=== PATIENT | female | born 1935 | race Caucasian/White ===

== ENCOUNTER 2019-08-31 16:36 | Inpatient (IN) | payer MEDICARE, BC ==
[~2019-08-31] VITALS: Ht 167.6 cm; Wt 74.9 kg
[2019-08-31] MEDS ORDERED: IV NORMAL SALINE 1,000ML 1,000 ML IV ONE (17:15)
--- NOTE | 2019-08-31 17:41 | PHYS DOC ---
Past History Past Medical History: Dementia, Depression, GERD, Hypertension (LEEROY GILES DO) Past Surgical History: Appendectomy, Tonsillectomy, Other Additional Past Surgical Histo: BILATERAL KNEES,HEMORRHOIDS (LEEROY GILES DO) Alcohol Use: Rarely Drug Use: None (LEEROY GILES DO) Adult General Chief Complaint Chief Complaint: MECHANICAL FALL HPI HPI 83-year-old female with dementia presents with multiple falls. She lives in an independent living facility. She has fallen at least twice in the last 3 days. She complains of left lateral rib pain. Her family member who accompanies her states that she was in quite a bit of pain earlier today. Patient does not remember significant pain. She states that the pain is only there when she takes deep breaths. She denies shortness breath or chest pain. She had an acoustic neuroma removed in 1988. She is always had some balance issues, but is been much worse lately. Family is concerned. Patient has not reported fever or chills recently. (LEEROY GILES DO) Review of Systems Review of Systems Constitutional: Multiple falls. Denies fever or chills [] Eyes: Denies change in visual acuity, redness, or eye pain [] HENT: Denies nasal congestion or sore throat [] Respiratory: Denies cough or shortness of breath [] Cardiovascular: No additional information not addressed in HPI [] GI: Denies abdominal pain, nausea, vomiting, bloody stools or diarrhea [] : Denies dysuria or hematuria [] Musculoskeletal: Left rib pain[] Integument: Denies rash or skin lesions [] Neurologic: Denies headache, focal weakness or sensory changes [] Endocrine: Denies polyuria or polydipsia [] All other systems were reviewed and found to be within normal limits, except as documented in this note. (LEEROY GILES DO) Current Medications Current Medications Current Medications Medications (Trade) Dose Ordered Sig/[place] Start Time Stop Time Status Last Admin Dose Admin Sodium Chloride 1,000 ml @ 1,000 mls/hr 1X ONCE 08/31/19 17:15 08/31/19 18:14 (LEEROY GILES DO) Allergies Allergies Allergies Coded Allergies Type Severity Reaction Last Updated Verified Penicillins Allergy Unknown 08/31/19 Yes Sulfa (Sulfonamide Antibiotics) Allergy Unknown 08/31/19 Yes (LEEROY GILES DO) Physical Exam Physical Exam Constitutional: Well developed, well nourished, no acute distress, non-toxic appearance. [] HENT: Normocephalic, atraumatic, bilateral external ears normal, oropharynx moist, no oral exudates, nose normal. [] Eyes: PERRLA, EOMI, conjunctiva normal, no discharge. [] Neck: Normal range of motion, no tenderness, supple, no stridor. [] Cardiovascular:Heart rate regular rhythm, no murmur [] Lungs & Thorax: Bilateral breath sounds clear to auscultation. No pain with palpation of the anterior left chest [] Abdomen: Bowel sounds normal, soft, no tenderness, no masses, no pulsatile masses. [] Skin: Warm, dry, no erythema, no rash. [] Back: No tenderness, no CVA tenderness. [] Extremities: No tenderness, no cyanosis, no clubbing, ROM intact, no edema. [] Neurologic: Alert and oriented X 3, normal motor function, normal sensory function, no focal deficits noted. [] Psychologic: Affect normal, judgement normal, mood normal. [] (LEEROY GILES DO) Current Patient Data Vital Signs Vital Signs Date Time Temp Pulse Resp B/P (MAP) Pulse Ox O2 Delivery O2 Flow Rate FiO2 08/31/19 16:50 98.3 71 20 96 Room Air (LEEROY GILES DO) EKG EKG [] (LEEROY GILES DO) EKG Dictation EKG shows sinus rhythm at 61 bpm. Left axis. Fascicular block. Slightly prolonged QT at 490 ms and a QTC of 495 ms. No findings acute STEMI of contralateral changes. (SHAYNA MACHADO MD) Radiology/Procedures Radiology/Procedures [] (LEEROY GILES DO) Radiology/Procedures [address] [address] IMAGING REPORT Signed PATIENT: Lloyd SPAIN ACCOUNT: [id number] : 1935 LOCATION: ER AGE: 83 SEX: F EXAM STATUS: REG ER ORD. PHYSICIAN: LEEROY GILES DO REASON: Falls, weakness, rib pain PROCEDURE: CT HEAD WO CONTRAST Exam: CT head INDICATION: Fall, weakness TECHNIQUE: Sequential axial images through the head were obtained without the administration of IV contrast. Comparisons: None FINDINGS: Right parietal craniotomy changes are noted. Encephalomalacia in the right temporal lobe is noted. Tiny focus of hyperdensity in the right basal ganglia series 2 image 13. There is no midline shift or sulcal effacement. Extensive patchy hypodensity in the periventricular and subcortical white matter. Thrasher-white distinction is preserved. The ventricular system is within normal limits without compression hydrocephalus. The basal cisterns are well maintained. The visualized portions of the paranasal sinuses and mastoid air cells are well-pneumatized. No acute fractures. IMPRESSION: 1. Tiny focus of hyperdensity in the right basal ganglia as described above which is favored to be calcification rather than intraparenchymal hemorrhage. Correlate with symptomatology and hypertension. Without prior imaging Recommend short-term follow-up imaging in 12-24 hours to reassess. 2. Extensive small vessel ischemic change, likely chronic. 3. Craniotomy changes in the right temporal lobe with encephalomalacia in the right temporal lobe. Exposure: One or more of the following in the visualized dose reduction techniques were utilized for this examination: 1. Automated exposure control 2. Adjustment of the MA and/or KV according to patient size 3. Use of iterative of reconstructive technique FOR INTERNAL CODING PURPOSES Critical result: Findings discussed with LEEROY GILES at 08/31/2019 6:11 PM. RESULT CODE: (C) Electronically signed by: Sneha Andrews MD (08/31/2019 6:15 PM) [address] [address] IMAGING REPORT Signed PATIENT: Lloyd SPAIN ACCOUNT: [id number] : 1935 LOCATION: ER AGE: 83 SEX: F EXAM STATUS: REG ER ORD. PHYSICIAN: LEEROY GILES DO REASON: Falls, weakness, left rib and chest pain PROCEDURE: RIBS LEFT AND PA CHEST Exam: Left ribs with PA chest INDICATION: Falls, weakness TECHNIQUE: Frontal view of the chest with frontal and oblique views of the left ribs Comparisons: None FINDINGS: The cardiomediastinal silhouette and pulmonary vessels are within normal limits. Small left-sided pleural effusion. Lungs are clear. No displaced rib fractures. IMPRESSION: 1. Small left-sided pleural effusion. 2. No displaced rib fractures. Electronically signed by: Sneha Andrews MD (08/31/2019 6:17 PM) [facility] DICTATED AND SIGNED BY: SNEHA ANDREWS MD DATE: 08/31/191816 CC: PAM WEBER MD; LEEROY GILES DO ~ (SHAYNA MACHADO MD) Course & Med Decision Making Course & Med Decision Making Pertinent Labs and Imaging studies reviewed. (See chart for details) Workup is pending. I am signing the patient out to Dr. Machado at 1820. He will determine the patient's final disposition. [] (LEEROY GILES DO) Course & Med Decision Making Impression: 1. Frequent Falls-Sat., Sun, Friday- 2. Head Contusions 3. Thrombocytopenia 124 4. Elevated Alk Phos. 142 5. UTI 6. Dementia 7. Chest Wall Pain Pt. Admitted to Dr. Goode. Plan repeat CT Tomorrow. Neuro checks. Tx. Pos sible UTI. (SHAYNA MACHADO MD) Dragon Disclaimer Dragon Disclaimer This electronic medical record was generated, in whole or in part, using a voice recognition dictation system. (LEEROY GILES DO) Departure Departure: Disposition: 01 HOME/RESIDENCE PRIOR TO ADM Condition: STABLE Dragon Disclaimer This chart was dictated in whole or in part using Voice Recognition software in a busy, high-work load, and often noisy Emergency Department environment. It may contain unintended and wholly unrecognized errors or omissions. (SHAYNA MACHADO MD) Dragon Disclaimer This chart was dictated in whole or in part using Voice Recognition software in a busy, high-work load, and often noisy Emergency Department environment. It may contain unintended and wholly unrecognized errors or omissions. (SHAYNA MACHADO MD) LEEROY GILES DO Aug 31, 2019 17:41 SHAYNA MACHADO MD Aug 31, 2019 19:12
[2019-08-31 17:54] LABS: BASO % 1 % (0-3); EOS # 0.1 x10^3/uL (0.0-0.7); EOS % 1 % (0-3); HEMATOCRIT 40.7 % (36.0-47.0); HEMOGLOBIN 13.6 g/dL (12.0-15.5); LYMPH # 1.3 x10^3/uL (1.0-4.8); LYMPH % 21 % (24-48); MEAN CORPUSCULAR HEMOGLOBIN 32 pg (25-35); MEAN CORPUSCULAR HGB CONC 33 g/dL (31-37); MEAN CORPUSCULAR VOLUME 94 fL (79-100); MONO # 0.8 x10^3/uL (0.0-1.1); MONO % 13 % (0-9); NEUT # 3.7 x10^3uL (1.8-7.7); NEUT % 64 % (31-73); PLATELET COUNT 124 x10^3/uL (140-400); RED BLOOD COUNT 4.32 x10^6/uL (3.50-5.40); RED CELL DISTRIBUTION WIDTH 14.1 % (11.5-14.5); WHITE BLOOD COUNT 5.9 x10^3/uL (4.0-11.0)
[2019-08-31 18:04] LABS: ALBUMIN 3.6 g/dL (3.4-5.0); ALBUMIN/GLOBULIN RATIO 0.9 (1.0-1.7); CALCIUM 9.3 mg/dL (8.5-10.1); CREATININE 0.7 mg/dL (0.6-1.0); GFR 79.9; POTASSIUM 3.6 mmol/L (3.5-5.1); TOTAL BILIRUBIN 0.5 mg/dL (0.2-1.0); TOTAL PROTEIN 7.5 g/dL (6.4-8.2)
--- NOTE | 2019-08-31 18:18 | RAD ---
Exam: CT head INDICATION: Fall, weakness TECHNIQUE: Sequential axial images through the head were obtained without the administration of IV contrast. Comparisons: None FINDINGS: Right parietal craniotomy changes are noted. Encephalomalacia in the right temporal lobe is noted. Tiny focus of hyperdensity in the right basal ganglia series 2 image 13. There is no midline shift or sulcal effacement. Extensive patchy hypodensity in the periventricular and subcortical white matter. Thrasher-white distinction is preserved. The ventricular system is within normal limits without compression hydrocephalus. The basal cisterns are well maintained. The visualized portions of the paranasal sinuses and mastoid air cells are well-pneumatized. No acute fractures. IMPRESSION: 1. Tiny focus of hyperdensity in the right basal ganglia as described above which is favored to be calcification rather than intraparenchymal hemorrhage. Correlate with symptomatology and hypertension. Without prior imaging Recommend short-term follow-up imaging in 12-24 hours to reassess. 2. Extensive small vessel ischemic change, likely chronic. 3. Craniotomy changes in the right temporal lobe with encephalomalacia in the right temporal lobe. Exposure: One or more of the following in the visualized dose reduction techniques were utilized for this examination: 1. Automated exposure control 2. Adjustment of the MA and/or KV according to patient size 3. Use of iterative of reconstructive technique FOR INTERNAL CODING PURPOSES Critical result: Findings discussed with LEEROY GILES at 08/31/2019 6:11 PM. RESULT CODE: (C) Electronically signed by: Sneha Nettles MD (08/31/2019 6:15 PM) [facility]
--- NOTE | 2019-08-31 18:20 | RAD ---
Exam: Left ribs with PA chest INDICATION: Falls, weakness TECHNIQUE: Frontal view of the chest with frontal and oblique views of the left ribs Comparisons: None FINDINGS: The cardiomediastinal silhouette and pulmonary vessels are within normal limits. Small left-sided pleural effusion. Lungs are clear. No displaced rib fractures. IMPRESSION: 1. Small left-sided pleural effusion. 2. No displaced rib fractures. Electronically signed by: Sneha Nettles MD (08/31/2019 6:17 PM) [facility]
[2019-08-31 18:33] LABS: BILIRUBIN,URINE NEG (NEG); CLARITY,URINE HAZY; COLOR,URINE YELLOW; GLUCOSE,URINE NEG (NEG)
[2019-08-31 18:34] LABS: BACTERIA,URINE FEW /HPF (0-FEW); NITRITE,URINE NEG (NEG); SQUAMOUS EPITHELIAL CELL,UR MOD /LPF; UROBILINOGEN,URINE 0.2 mg/dL (0.2 mg/dL)
[2019-08-31 18:46] LABS: PLT ESTIMATE DECREASED (ADEQUATE)
--- NOTE | 2019-08-31 18:54 | EKG ---
[address] [address] Test Date: 2019-08-31 Test Time: 18:50:52 Pat Name: Lloyd SPAIN Department: Room: Gender: F Recoverer: : 1935 Requested By: SHAYNA ODONNELL Order Number: [id number] Reading MD: Suhas Kemp Measurements Intervals [place] Rate: 61 P: 42 WY: 168 QRS: -38 QRSD: 84 T: 24 QT: 490 QTc: 495 Interpretive Statements SINUS RHYTHM ABNORMAL LEFT AXIS DEVIATION LEFT ANTERIOR FASCICULAR BLOCK PROLONGED QT Electronically Signed On 10-12-2019 16:02:49 ADMISSIONS ADVISOR by Suhas Kemp
[2019-08-31] MEDS ORDERED: ACETAMINOPHEN 325 MG TABLET PO PRN (19:00)
[2019-08-31] MEDS ORDERED: ONDANSETRON PF 4 MG/2 ML VIAL. IV PRN (19:00)
--- NOTE | 2019-08-31 21:05 | NUR ---
The patient, Lloyd SPAIN, 83 y/o, F admitted by [facility] MD, was given written information regarding hospital policies, unit procedures and contact persons. Pt assisted onto the unit via gurney, accompanied by EMS personnel. Pt transferred from gurney to bed with minimal assistance. VSS. Oriented pt to room, safety precautions and call light. Valuables were checked and left at bedside with pt. Bed alarm in place and call light within reach.
[2019-08-31 21:17] VITALS: BP 131/71
[2019-08-31] MEDS: IV RINGERS SOLUTION,LACTATED 1,000 ML IV SCH (22:56)
[2019-08-31] MEDS: IPRATRPIUM/ALBUTEROL 0.5/2.5MG 3 ML NEBU. NEB SCH (22:56)
[2019-09-01] MEDS: IV RINGERS SOLUTION,LACTATED 1,000 ML IV SCH ×4 (01:15→20:00)
[2019-09-01 04:51] VITALS: BP 132/74
[2019-09-01] MEDS: IPRATRPIUM/ALBUTEROL 0.5/2.5MG 3 ML NEBU. NEB SCH (05:32)
[2019-09-01 06:31] LABS: BASO % 0 % (0-3); EOS # 0.1 x10^3/uL (0.0-0.7); EOS % 2 % (0-3); HEMATOCRIT 36.8 % (36.0-47.0); HEMOGLOBIN 12.3 g/dL (12.0-15.5); LYMPH # 1.3 x10^3/uL (1.0-4.8); LYMPH % 27 % (24-48); MEAN CORPUSCULAR HEMOGLOBIN 31 pg (25-35); MEAN CORPUSCULAR HGB CONC 33 g/dL (31-37); MEAN CORPUSCULAR VOLUME 94 fL (79-100); MONO # 0.6 x10^3/uL (0.0-1.1); MONO % 13 % (0-9); NEUT # 2.6 x10^3uL (1.8-7.7); NEUT % 57 % (31-73); PLATELET COUNT 118 x10^3/uL (140-400); RED BLOOD COUNT 3.92 x10^6/uL (3.50-5.40); RED CELL DISTRIBUTION WIDTH 14.3 % (11.5-14.5); WHITE BLOOD COUNT 4.7 x10^3/uL (4.0-11.0)
[2019-09-01 06:44] LABS: CALCIUM 8.5 mg/dL (8.5-10.1); CREATININE 0.5 mg/dL (0.6-1.0); GFR 117.8; POTASSIUM 3.3 mmol/L (3.5-5.1)
[2019-09-01] MEDS ORDERED: levoFLOXacin 500 MG TABLET PO SCH (09:00)
[2019-09-01] MEDS ORDERED: amLODIPine BESYLATE 10 MG TABLET PO SCH (09:30)
[2019-09-01] MEDS ORDERED: OXYBUTYNIN CHLORIDE 5 MG TABLET PO SCH (09:30)
[2019-09-01] MEDS ORDERED: SERTRALINE 100 MG TABLET. PO SCH (09:30)
--- NOTE | 2019-09-01 09:34 | RAD ---
CT Head W/O Contrast: History: Follow-up abnormal CT Comparison: none Axial images were obtained without contrast. There has been prior right temporal craniotomy. There is right temporal lobe encephalomalacia. There is moderate diffuse atrophy. There is no mass effect, extraaxial fluid collections or hydrocephalus. There is no gross bleed. Marked, patchy periventricular and subcortical white matter hypoattenuation is seen. There is no focal loss of hernandez-white matter distinction to suggest acute ischemia, i.e. stroke. Punctate calcification in the right basal ganglia is felt to be physiologic. There is a perivascular space in the right basal ganglia as well. Impression: Atrophy and chronic white matter changes and prior right temporal craniotomy. No acute findings. PQRS Compliance Statement: One or more of the following individualized dose reduction techniques were utilized for this examination: 1. Automated exposure control 2. Adjustment of the mA and/or kV according to patient size 3. Use of iterative reconstruction technique Electronically signed by: Efrain Romano III, MD (09/01/2019 9:31 AM) [facility]
--- NOTE | 2019-09-01 09:49 | RAD ---
CT CHEST WO CONTRAST Indication: Patient fell. Exposure: One or more of the following individualized dose reduction techniques were utilized for this examination: 1. Automated exposure control 2. Adjustment of the mA and/or kV according to patient size 3. Use of iterative reconstruction technique. Technique: Standard imaging without intravenous contrast. Comparison: None FINDINGS: Limited vascular exam without contrast. Ascending aorta measures 3.7 cm. Aorta is calcified without gross aneurysm. No evidence of mass involving partially seen thyroid gland. No evidence of pathologic lymph node enlargement. Coronary artery calcifications. No significant pericardial effusion. Small left pleural effusion. This measures simple fluid density, 18 Hounsfield units. Small ill-defined nodular structure in the right lung base, measures about 4 mm. This could be inflammatory or scarring. Atelectasis or infiltrate in the left lung base and to a much lesser extent right lung base. No evidence of pneumothorax. Calcified granuloma right lung base. Trachea and mainstem bronchi are patent. No evidence of a displaced rib fracture, although a specific region of focal rib tenderness is not known. Degenerative spondylosis of the spine. [id number]-dd-ozyypgoc compression fracture of what appears to be the T11 vertebral body, could be acute, particularly if there is focal tenderness here. Scans through the upper abdomen are limited due to technique. No definite acute findings. IMPRESSION: 1. Small left pleural effusion. 2. Moderate compression fracture of approximately T11 vertebral body, could be acute. 3. Infiltrate or atelectasis in the lung bases. Electronically signed by: Nathen Ramirez MD (09/01/2019 9:46 AM) [facility]
[2019-09-01] MEDS: oxyCODONE/APAP 5/325 1 TAB TABLET PO PRN ×2 (10:09→20:09)
--- NOTE | 2019-09-01 10:18 | NUR ---
Patient complaining of severe pain in back, CT of chest revealed T11 compression fracture, acute. Dr. Goode notified via telephone and new order for Oxycodone 5 mg q 4 hour prn for pain received. Medication administered per patient request.
[2019-09-01 11:05] VITALS: BP 139/72
[2019-09-01 14:23] VITALS: BP 130/75
--- NOTE | 2019-09-01 17:56 | SSS ---
ADMIT DATE: 09/01/2019 HISTORY OF PRESENT ILLNESS: The patient is an 83-year-old female patient, a resident at independent living facility at [facility], who basically has fallen twice in the last 3 days. She complained of left rib pain. Her family members who accompanied her stated that she has quite a bit of pain earlier the day of admission. The patient does not remember significant pain. She states the pain is only there when she takes deep breath or moves. She denied any shortness of breath or chest pain. She had an acoustic neuroma removed in 1988. She always has some balance issues, but it has been much worse lately. Family is concerned. She did not report any fever, chills or rigors. She was admitted. She was extensively investigated in the Emergency Room and was admitted for frequent falls, thrombocytopenia, slightly elevated alkaline phosphatase, urinary tract infection, dementia and chest wall pain and she continued to have severe pain. She has had a CT scan of the chest done, which basically showed that the patient has small left-sided pleural effusion, moderate compression fracture of approximately T11 vertebral body, could be acute infiltrate or atelectasis in the lung bases, and given the severity of pain, the fact there is an acute compression fracture, decision was made to transfer her to [facility] with a plan to consult the interventional radiologist for suitability for vertebroplasty. PAST MEDICAL HISTORY: Significant for hypertension, depression, dementia, gastroesophageal reflux disease and acoustic neuroma. PAST SURGICAL HISTORY: Significant for appendectomy, hemorrhoidectomy, bilateral cataract extraction, tubal ligation, bilateral total knee arthroplasty and right acoustic neuroma resection. ALLERGIES: She is allergic to PENICILLIN and SULFA DRUGS. She apparently is on following medications: She is on amlodipine besylate 10 mg once a day, oxycodone/APAP 5/325 one tablet every 6 hours, acetaminophen 650 mg every 4 hours, sertraline 100 mg once a day, oxybutynin 5 mg once a day. FAMILY HISTORY: She has one brother at the age of 85. One sister at the age of 5 because of spinal meningitis. Both parents in their 90s. However, the cause of is not clear to her. SOCIAL HISTORY: She is , has 2 daughters, one of them is handicapped and lives in a fdc. She has 1 son. She used to be a teacher. She does not smoke, drink alcohol or use recreational drugs. REVIEW OF SYSTEMS: The patient denied any blurring of vision. She had bilateral cataract extraction, but denied any glaucoma or macular degeneration. Denied any earache, tinnitus. 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 Denied any nausea, vomiting, diarrhea or constipation. Denied any hematemesis, melena or hematochezia. Denied any dysuria, frequency or hematuria. Did complain of chest pain. Denied any shortness of breath, cough, phlegm or hemoptysis. PHYSICAL EXAMINATION: GENERAL: When I examined her, she looked well and was clearly in no apparent respiratory distress. No pallor, jaundice or cyanosis. No lymphadenopathy, no thyromegaly. No jugular venous distension. No limb edema. VITAL SIGNS: Her heart rate was 75, blood pressure was 130/75, temperature was 98.3, respiratory rate 20, and oxygen saturation was 92%. HEAD, EYES, EARS, NOSE AND THROAT: Showed normocephalic, atraumatic. NECK: Supple. HEART: Showed normal first and second heart sounds. No gallop or murmur. CHEST: Clear to auscultation. No crepitation or rhonchi. ABDOMEN: Distended, soft, nontender. No guarding or rigidity. No organomegaly. All hernial orifice intact. Bowel sounds normal. NEUROLOGIC: She was hard of hearing, particularly on the right side and apparently she has tendency to veer towards the right side; however, all other cranial nerves are intact. EXTREMITIES: She moves extremities without difficulty. She ambulates with a walker. LABORATORY DATA: Showed that her white cell count was 4700, hemoglobin 12.3, hematocrit 36, MCV 94 and platelet count of 118,000 with normal manual differential. Her chemistry showed a serum sodium 144, potassium 3.3, chloride 107, bicarbonate 27, anion gap of 10, BUN 10, creatinine 0.5, estimated GFR was 117 mL per minute. Her glucose was 91, calcium was 8.5. Her prothrombin time, INR and aPTT were normal. Urinalysis showed the urine was yellow, hazy with a pH of 7, specific gravity 1.015. Her urine was negative for protein, glucose, ketones. There was trace of blood, negative for nitrite and bilirubin, trace of leukocyte esterase and 3-5 rbc's, 1-4 wbc's, very few bacteria. Her rib views showed small left-sided pleural effusion. No displaced rib fractures. The cardiomediastinal silhouette and pulmonary vessels are within normal limits. Small left sided pleural effusion. Lungs are clear. Her CT scan of the head showed: 1. There is a tiny focus of hyperdensity in the right basal ganglia as described above, which is favored to be calcification rather than intraparenchymal hemorrhage, correlate with symptomatology and hypertension without prior imaging. Recommend short-term followup imaging in 12-24 hours to assist. 2. Extensive small vessel ischemic changes, likely chronic craniotomy changes in the right temporal lobe with encephalomalacia in the right temporal lobe. Her CT scan of the head again showed atrophy and chronic white matter changes and poor prior right temporal craniotomy. No acute finding. CT scan of the chest showed that there is small left-sided pleural effusion, moderate compression fracture at approximately T11 vertebral body could be acute. Infiltrate or atelectasis in the lung bases. Given the acute onset of pain and that the radiologist felt that the T11 vertebral body could be acute, a decision was made to transfer her to [facility] to arrange for probably an MRI and to consult the interventional radiologist for vertebroplasty. [facility] MD DR: SERAFIN/latrice JOB#: [id number] / [id number]
[2019-09-01 18:44] VITALS: BP 130/73
[2019-09-01 19:44] VITALS: BP 145/79
[2019-09-01] MEDS ORDERED: LACTOBACILLUS RHAMNOSUS GG 1 CAPSULE. PO SCH (21:00)
== END 2019-09-01 21:45 | disposition short-term general hospital (02) | DRG 543 ==
LOC: ER 16:36 → 1 SOUTH 18:30
PROVIDERS: ADMIT Internal Medicine; ATTEND Internal Medicine
DX: M48.54XA Collapsed vertebra, not elsewhere classified, thoracic region, initial encounter for fracture (principal); N39.0 Urinary tract infection, site not specified; J90 Pleural effusion, not elsewhere classified; J98.11 Atelectasis; D33.3 Benign neoplasm of cranial nerves; D69.6 Thrombocytopenia, unspecified; F03.90 Unspecified dementia, unspecified severity, without behavioral disturbance, psychotic disturbance, mood disturbance, and anxiety; G93.89 Other specified disorders of brain; H91.91 Unspecified hearing loss, right ear; I10 Essential (primary) hypertension; S00.93XA Contusion of unspecified part of head, initial encounter; W18.30XA Fall on same level, unspecified, initial encounter; Z90.49 Acquired absence of other specified parts of digestive tract; Z96.653 Presence of artificial knee joint, bilateral; Z98.41 Cataract extraction status, right eye; Z98.42 Cataract extraction status, left eye; F32.9 Major depressive disorder, single episode, unspecified; K21.9 Gastro-esophageal reflux disease without esophagitis; Z88.0 Allergy status to penicillin; Z88.2 Allergy status to sulfonamides
CPT/HCPCS: 36415; 70450; 71101; 71250; 80048; 80053; 81001; 85025; 85610; 85730; 87086; 93005; 96360; J7120; J7620; 99285-25; J7030

== ENCOUNTER 2020-01-28 14:03 | Inpatient (IN) | payer MEDICARE, BC ==
[~2020-01-28] VITALS: Ht 167.6 cm; Wt 68.1 kg
[2020-01-28 15:30] LABS: HEMOGLOBIN 12.5 g/dL (12.0-15.5); RED BLOOD COUNT 4.02 x10^6/uL (3.50-5.40); RED CELL DISTRIBUTION WIDTH 14.5 % (11.5-14.5); WHITE BLOOD COUNT 6.3 x10^3/uL (4.0-11.0)
[2020-01-28 15:44] LABS: CALCIUM 9.1 mg/dL (8.5-10.1); CREATININE 0.6 mg/dL (0.6-1.0); GFR 95.2; POTASSIUM 3.7 mmol/L (3.5-5.1)
[2020-01-28 15:50] LABS: ALBUMIN/GLOBULIN RATIO 0.8 (1.0-1.7); TOTAL BILIRUBIN 0.9 mg/dL (0.2-1.0); TOTAL PROTEIN 6.9 g/dL (6.4-8.2); URIC ACID 2.4 mg/dL (2.6-6.0)
--- NOTE | 2020-01-28 15:59 | HP ---
ADMIT DATE: 01/28/2020 HISTORY OF PRESENT ILLNESS: The patient is an 84-year-old female patient, a resident at [facility], who apparently at least has fallen about 3 times, one of them was they found her between the wall and her bed. At that time, she was complaining of pain in her left hip and x-ray was done, which showed that there was no evidence of any fracture or dislocation. However, she has fallen about a total of 3 times in the [facility] and over the last 2-3 days, she has been complaining of pain in her left knee and difficulty walking and therefore, a decision was made to admit her directly for further evaluation and treatment. She apparently has had x-ray there done showed no evidence of any fracture or loosening, but she has large left-sided knee effusion. When I saw her today, she was very confused, does not really give a consistent answers and time. She complained of pain in her back and sometimes she denies that, but was consistent. She has tenderness and pain and limitation of movement of her left knee joint. PAST MEDICAL HISTORY: Significant for hypertension, depression, dementia, gastroesophageal reflux disease, and acoustic neuroma. 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 She has also history of thrombocytopenia. She also is known to have T11 compression fracture and gastroesophageal reflux disease. PAST SURGICAL HISTORY: Significant for bilateral cataract extraction, appendectomy, tubal ligation, hemorrhoidectomy, bilateral total knee arthroplasty, right acoustic neuroma resection. ALLERGIES: SHE IS ALLERGIC TO PENICILLIN AND SULFA DRUGS. MEDICATIONS: She is normally on amlodipine besylate 10 mg once a day, oxycodone/APAP 5/325 one tablet every 6 hours, acetaminophen 650 mg every 4 hours as needed, sertraline 100 mg once a day, oxybutynin 5 mg once a day. She is also on Eliquis 5 mg twice a day as she has left lower extremity DVT. FAMILY HISTORY: She has one brother who at the age of 85. One sister at age of 5 because of spinal meningitis. Both parents are in their 90s; however, the cause of is not clear to her. SOCIAL HISTORY: She is , has 2 daughters, one of them is handicapped and lives in a prison. She has 1 son. She used to be a teacher. She does not smoke, drink alcohol or use any recreational drugs. REVIEW OF SYSTEMS: The patient denied any blurring of vision. She did have bilateral cataract extraction, but denied any glaucoma or macular degeneration. Denied any earache or tinnitus. She is deaf in her right side. Denied any nausea, vomiting, diarrhea or constipation. Denied any hematemesis, melena or hematochezia. Denied any dysuria, frequency, hematuria. Denied any chest pain, shortness of breath, orthopnea or paroxysmal nocturnal dyspnea. PHYSICAL EXAMINATION: GENERAL: When I examined her this afternoon, she was resting slightly propped up in bed, in no apparent respiratory distress. She was slightly pale, but no jaundice, cyanosis or thyromegaly. No jugular venous distention. No lower limb edema. VITAL SIGNS: Her heart rate was 80, blood pressure was 127/70, temperature was 98, respiratory rate 20, and oxygen saturation was 94% on room air. HEAD, EYES, EARS, NOSE AND THROAT: Normocephalic, atraumatic. NECK: Supple. CARDIAC: Normal first and second heart sounds. No gallop or murmur. CHEST: Clear to auscultation. No crepitation or rhonchi. ABDOMEN: Distended, soft, nontender. NEUROLOGIC: She is awake, alert, but very confused. All her cranial nerves are grossly intact. EXTREMITIES: She moves all extremities without difficulty, but she clearly has difficulty flexing and extending her right knee, tenderness to palpation, although there is no obvious redness. PLAN: My plan is to check her lab work including CBC and CMP and uric acid. I will arrange perhaps CT scan of the left knee joint and also total body bone scan. She has recurrent falls. We will reconcile all her medication and if there is any evidence of fracture, [facility] will [facility]. LM MC MD DR: SERAFIN/latrice JOB#: [id number] / [id number]
--- NOTE | 2020-01-28 16:27 | RAD ---
CT scan of the lumbar spine without contrast 01/28/2020 CLINICAL HISTORY: Left knee pain. TECHNIQUE: Unenhanced, contiguous, 0.625 mm axial sections were obtained to the left knee. One or more of the following individualized dose reduction techniques were utilized for this study: 1. Automated exposure control. 2. Adjustment of the mA and/or kV according to patient size. 3. Use of iterative reconstruction technique. FINDINGS: The patient is post bilateral TKA. Beam hardening artifact related to the orthopedic hardware significant degrades these images limiting their evaluation. There is a moderate sized left knee joint effusion. No obvious fracture or dislocation is seen. There is diffuse osteopenia of the visualized bony structures. Atherosclerotic calcification of the left popliteal artery and its branches is noted. IMPRESSION: Post left TKA. Moderate left knee joint effusion. No definite acute osseous abnormality is seen. Electronically signed by: Bart Elkins MD (01/28/2020 4:24 PM) [id number]
[2020-01-28] MEDS ORDERED: DOCU-109 PO (17:20)
[2020-01-28] MEDS ORDERED: APIX5TAB3 PO (17:35)
[2020-01-28] MEDS ORDERED: BISA10SU4 RC (17:35)
[2020-01-28] MEDS ORDERED: MAGN400O7 PO (17:35)
[2020-01-28] MEDS ORDERED: AMLO10TA4 PO (17:35)
[2020-01-28] MEDS ORDERED: OXYB5TAB10 PO (17:35)
[2020-01-28] MEDS ORDERED: SERT100T PO (17:35)
[2020-01-28] MEDS ORDERED: POTA20PA30 PO (17:35)
[2020-01-28] MEDS ORDERED: MULT-121 PO (17:35)
[2020-01-28] MEDS ORDERED: PSYL0.5215 PO (17:35)
[2020-01-28] MEDS ORDERED: BISACODYL 10 MG SUPP.RECT RC PRN (17:45)
--- NOTE | 2020-01-28 17:52 | NUR ---
84 Y O FEMALE ARRIVED TO THE ROOM 109 AT 1440 VIA W/C ACCOMPANIED BY STAFF MEMBER. PATIENT IS A/O X 1, FORGETFUL AND CONFUSED, PT IS SLEETMUTE,SPEECH IS CLEAR. PLEASANT AND COOPERATIVE WITH CARES. PT DENIED ANY PAIN AT THIS MOMENT. PT ASSISTED X 2 TRANSFERRED FROM THE W/C TO BED. LUNGS ARE CLEAR, BOWEL SOUNDS ARE PRESENT, ABDOMEN IS SOFT AND NON TENDER. SKIN INTACT, LLE KNEE AREA APPEARED SLIGHTLY EDEMATOUS. X-RAY OF LLE WAS DONE AND R/O FX. CONSULTS FOR PT/OT OBTAINED.
[2020-01-28] MEDS: ACETAMINOPHEN 325 MG TABLET PO PRN (19:13)
[2020-01-28 19:20] VITALS: BP 144/56
[2020-01-28] MEDS: PATCH REMOVAL. MC SCH (21:45)
[2020-01-28] MEDS: APIXABAN 5 MG TABLET. PO SCH (21:45)
--- NOTE | 2020-01-28 22:05 | NUR ---
PATIENT WITH LOW GRADE TEMPERATURE. 99.4, 99.6. CALL TO DR. MC AND ORDER RECEIVED FOR COVID-19 SWAB.
[2020-01-28 22:25] VITALS: BP 136/57
--- NOTE | 2020-01-28 22:25 | NUR ---
EXPLAINED PROCEDURE TO PATIENT AND HAD ASSISTANCE FROM OTHER RN. SWAB OBTAINED AND SENT TO LAB. pATIENT INCONTINENT AND ARVIND CARE PROVIDED, BRIEF CHANGED. VITALS OBTAINED.
[2020-01-29] MEDS: ACETAMINOPHEN 325 MG TABLET PO PRN (04:16)
[2020-01-29 04:25] VITALS: BP 136/60
[2020-01-29 06:57] LABS: HEMATOCRIT 37.9 % (36.0-47.0); HEMOGLOBIN 12.7 g/dL (12.0-15.5); RED BLOOD COUNT 4.13 x10^6/uL (3.50-5.40); RED CELL DISTRIBUTION WIDTH 14.4 % (11.5-14.5); WHITE BLOOD COUNT 5.3 x10^3/uL (4.0-11.0)
[2020-01-29 07:06] LABS: CALCIUM 9.4 mg/dL (8.5-10.1); CREATININE 0.5 mg/dL (0.6-1.0); GFR 117.5; POTASSIUM 3.4 mmol/L (3.5-5.1)
[2020-01-29 09:00] VITALS: BP 130/58
[2020-01-29] MEDS: APIXABAN 5 MG TABLET. PO SCH ×2 (10:32→20:54)
[2020-01-29] MEDS: SERTRALINE 100 MG TABLET. PO SCH (10:32)
[2020-01-29] MEDS: MULTIVITAMIN with MINERAL TABLET. PO SCH (10:32)
[2020-01-29] MEDS: PSYLLIUM SEED (WITH SUGAR) PACKET. PO SCH (10:32)
[2020-01-29] MEDS: DOCUSATE SODIUM 100 MG CAPSULE PO SCH (10:32)
[2020-01-29] MEDS: amLODIPine BESYLATE 10 MG TABLET PO SCH (10:32)
[2020-01-29] MEDS: OXYBUTYNIN CHLORIDE 5 MG TABLET PO SCH (10:32)
[2020-01-29] MEDS: POTASSIUM CHLORIDE 20 MEQ TABLET.ER. PO SCH (10:33)
[2020-01-29] MEDS: MAGNESIUM HYDROXIDE 2,400 MG/30 ML ORAL.SUSP. PO SCH (10:33)
[2020-01-29] MEDS: LIDOCAINE (700MG/PATCH) PATCH. TD SCH (10:34)
--- NOTE | 2020-01-29 12:47 | PN ---
DATE: SUBJECTIVE: The patient is resting, slightly propped up in bed, in no apparent distress. She continued to have pain in her left knee joint. We did a CT scan of the left lower extremity showed that the patient has post left total knee arthroplasty with moderate left knee joint effusion, no definite acute osseous abnormalities seen, but obviously the beam hardening artifact related to the orthopedic hardware significantly degrades these images limiting their evaluation and therefore we ordered bone scan. She has multiple falls while at [facility]. PHYSICAL EXAMINATION: GENERAL: When I saw her today, she looked pale, but no jaundice, cyanosis or thyromegaly. No jugular venous distention. No lower limb edema. VITAL SIGNS: Her heart rate was 79, blood pressure was 136/60, temperature 98.3, respiratory rate was 18 and oxygen saturation was 93% on room air. HEAD, EYES, EARS, NOSE AND THROAT: Showed normocephalic, atraumatic. NECK: Supple. HEART: Showed normal first and second heart sounds. No gallop or murmur. CHEST: Clear to auscultation. No crepitation or rhonchi. ABDOMEN: Distended, soft, nontender. No guarding or rigidity. No organomegaly. All hernial orifice intact. Bowel sounds normal. NEUROLOGIC: She is awake, alert, responding appropriately. All cranial nerves intact. She moves extremities without difficulty. She ambulates with a walker, but the pain is now worse. She is unable to walk. ASSESSMENT: This is an 84-year-old female patient who was admitted with pain and swelling of her left knee joint. CT scan showed large effusion; however, the beam hardening of the hardware degrades the images and therefore we will do a bone scan to see if there is any evidence of infection. Meanwhile, we will continue with all other her medication and once we have the report, we might have to transfer her to [facility] to consult the orthopedic surgeon as she might require aspiration. LM MC MD DR: SERAFIN/latrice JOB#: [id number] / [id number]
[2020-01-29 14:51] VITALS: BP 118/67
--- NOTE | 2020-01-29 17:16 | RAD ---
Bone scan 01/29/2020 CLINICAL HISTORY: History of frequent falls. Left hip and knee pain. TECHNIQUE: 3 hours after the intravenous administration of 12.4 mCi of technetium 99m MDP, whole body imaging of the axial and appendicular skeleton was performed using the gamma camera. FINDINGS: Comparison is made to patient's CT scan of the chest dated 09/01/2019. Additional comparison is made to the patient's CT scan of the left knee dated 01/28/2020. Additional comparison is made to AP digital spot radiograph of the left hip dated 12/09/2019. Areas of increased activity are seen involving the cervical, mid and lower thoracic and lower lumbar spine and both feet and ankles consistent with areas of degenerative change. Increased activity is seen within the left femoral head/neck which would be consistent with a healing fracture in this region. Photopenic areas seen surrounding both knees consistent with patient's bilateral TKAs. Increased activity is seen surrounding the prostheses which is nonspecific. No abnormal activity is seen to suggest evidence of an occult fracture in this region. Increased activity is seen involving the anterior left fifth and sixth ribs which likely reflects healing rib fractures. IMPRESSION: Increased activity is seen involving the left femoral head/neck which corresponds to the patient's known healing subcapital fracture of the left hip. Areas of increased activity are seen involving the anterior left fifth and sixth ribs consistent with healing rib fractures. No abnormal activity is seen surrounding the left knee to suggest evidence of an acute fracture. Electronically signed by: Bart Elkins MD (01/29/2020 5:13 PM) [id number]
[2020-01-29 19:15] VITALS: BP 137/72
[2020-01-29] MEDS: PATCH REMOVAL. MC SCH (21:00)
[2020-01-30 06:32] VITALS: BP 129/62
[2020-01-30] MEDS: POTASSIUM CHLORIDE 20 MEQ TABLET.ER. PO SCH (08:00)
[2020-01-30] MEDS: APIXABAN 5 MG TABLET. PO SCH ×2 (08:51→20:39)
[2020-01-30] MEDS: MULTIVITAMIN with MINERAL TABLET. PO SCH (08:51)
[2020-01-30] MEDS: OXYBUTYNIN CHLORIDE 5 MG TABLET PO SCH (08:51)
[2020-01-30] MEDS: MAGNESIUM HYDROXIDE 2,400 MG/30 ML ORAL.SUSP. PO SCH (08:51)
[2020-01-30] MEDS: SERTRALINE 100 MG TABLET. PO SCH (08:51)
[2020-01-30] MEDS: DOCUSATE SODIUM 100 MG CAPSULE PO SCH (08:51)
[2020-01-30] MEDS: PSYLLIUM SEED (WITH SUGAR) PACKET. PO SCH (08:51)
[2020-01-30] MEDS: LIDOCAINE (700MG/PATCH) PATCH. TD SCH (08:52)
[2020-01-30] MEDS: amLODIPine BESYLATE 10 MG TABLET PO SCH (08:52)
[2020-01-30 11:00] VITALS: BP 133/65
--- NOTE | 2020-01-30 12:22 | PN ---
DATE: 01/30/2020 SUBJECTIVE: The patient is resting, slightly propped up in bed, in no apparent respiratory distress. She is awake, alert, continued to have recurrent bouts of cough that seems to be moist, but denied any chest pain; however, she has been afebrile and her white cell count was normal. In fact, her COVID-19 by PCR was negative. PHYSICAL EXAMINATION: GENERAL: When I saw her this morning, she looked pale, but no jaundice, cyanosis or thyromegaly. No jugular venous distention. No limb edema. VITAL SIGNS: Her heart rate was 79, blood pressure was 129/62, temperature was 98.3, respiratory rate was 18 and oxygen saturation was 94% on room air. HEAD, EYES, EARS, NOSE AND THROAT: Showed normocephalic, atraumatic. NECK: Supple. HEART: Showed normal first and second heart sounds. No gallop, rub or murmur. CHEST: Clear to auscultation. No crepitation or rhonchi. ABDOMEN: Distended, soft, nontender. NEUROLOGIC: She was awake, alert, responding appropriately. She moves extremities without difficulty. Her left knee seems to be less painful today. She is able to bend it much easier. We did actually a bone scan, which basically showed that she has increased activity seen involving the left femoral head and neck, which corresponds to the patient's nonhealing subcapital fracture of the left hip. She has also areas of increased activity seen involving the anterior left 5th and 6th rib consistent with healing rib fractures. No abnormal activity seen surrounding the left knee to suggest evidence of an acute fracture. ASSESSMENT: 1. An 84-year-old female patient who was admitted with pain and swelling of the left knee joint. 2. She has multiple falls while at [facility]. 3. She is known to have right acoustic neuroma that was resected. 4. She is known to have severe sensorineural deafness on the right side. She also has cerebellar ataxia. 5. Gastroesophageal reflux disease. 6. Depression and dementia. 7. Hypertension. PLAN: My plan is obviously to order physical and occupational therapy, now that she is negative and there is no evidence of fracture. If she remains stable tomorrow, she can be discharged back to her independent living facility if the physical therapist recommends that. LM MC MD DR: Oleksandr JOB#: [id number] / [id number]
[2020-01-30 19:52] VITALS: BP 156/82
[2020-01-30] MEDS: PATCH REMOVAL. MC SCH (20:39)
[2020-01-31 06:20] VITALS: BP 137/78
[2020-01-31 06:24] LABS: HEMATOCRIT 37.2 % (36.0-47.0); HEMOGLOBIN 12.3 g/dL (12.0-15.5); RED BLOOD COUNT 4.05 x10^6/uL (3.50-5.40); RED CELL DISTRIBUTION WIDTH 14.7 % (11.5-14.5); WHITE BLOOD COUNT 4.6 x10^3/uL (4.0-11.0)
[2020-01-31 06:31] LABS: ALBUMIN 2.7 g/dL (3.4-5.0); ALBUMIN/GLOBULIN RATIO 0.7 (1.0-1.7); CALCIUM 8.9 mg/dL (8.5-10.1); CREATININE 0.5 mg/dL (0.6-1.0); GFR 117.5; POTASSIUM 3.6 mmol/L (3.5-5.1); TOTAL BILIRUBIN 0.3 mg/dL (0.2-1.0); TOTAL PROTEIN 6.7 g/dL (6.4-8.2)
[2020-01-31] MEDS: OXYBUTYNIN CHLORIDE 5 MG TABLET PO SCH (07:51)
[2020-01-31] MEDS: ACETAMINOPHEN 325 MG TABLET PO PRN (07:51)
[2020-01-31] MEDS: amLODIPine BESYLATE 10 MG TABLET PO SCH (07:51)
[2020-01-31] MEDS: PSYLLIUM SEED (WITH SUGAR) PACKET. PO SCH (07:52)
[2020-01-31] MEDS: APIXABAN 5 MG TABLET. PO SCH (07:52)
[2020-01-31] MEDS: POTASSIUM CHLORIDE 20 MEQ TABLET.ER. PO SCH (07:52)
[2020-01-31] MEDS: DOCUSATE SODIUM 100 MG CAPSULE PO SCH (07:52)
[2020-01-31] MEDS: SERTRALINE 100 MG TABLET. PO SCH (07:52)
[2020-01-31] MEDS: MAGNESIUM HYDROXIDE 2,400 MG/30 ML ORAL.SUSP. PO SCH (07:53)
[2020-01-31] MEDS: MULTIVITAMIN with MINERAL TABLET. PO SCH (07:53)
[2020-01-31] MEDS: LIDOCAINE (700MG/PATCH) PATCH. TD SCH (08:00)
[2020-01-31 12:07] VITALS: BP 150/70
--- NOTE | 2020-01-31 13:45 | DS ---
DATE OF DISCHARGE: 01/31/2020 HOSPITAL COURSE: The patient is an 84-year-old female patient who was residing at [facility] and who was admitted with pain and swelling of her left knee joint that she has multiple falls and she has had a CT scan of her lower extremity, which basically showed that she is post left total knee arthroplasty, moderate left knee joint effusion with definite acute osseous abnormalities seen. Therefore, we did a bone scan, which showed increased activity is seen involving the left femoral head and neck, which corresponds to the patient's nonhealing subcapital fracture of the left hip, areas of increased activity are seen involving the anterior left 5th and 6th ribs consistent with healing rib fractures. No abnormal activity is seen surrounding the left knee to suggest evidence of acute fracture. There was suggestion that she might be exposed to coronavirus and therefore, a COVID-19 test was done and it was negative. The patient remained stable and afebrile with normal white cell count. She walked with a walker all the way to the shower and it was felt that the patient is appropriate to be discharged to assisted living facility as she is unable to take care of herself and apparently arrangement will be made for her to be admitted to assisted living facility by her family. PHYSICAL EXAMINATION: GENERAL: When I saw her today, she looked well and was clearly in no apparent respiratory distress, pale, but no jaundice, cyanosis or thyromegaly. No jugular venous distention or limb edema. VITAL SIGNS: Her heart rate was 75, blood pressure was 150/70, temperature was 98, respiratory rate 20, and oxygen saturation was 94% on room air. HEAD, EYES, EARS, NOSE AND THROAT: Showed normocephalic, atraumatic. NECK: Supple. HEART: Showed normal first and second heart sounds. No gallop or murmur. CHEST: Clear to auscultation. No crepitation or rhonchi. ABDOMEN: Scaphoid, soft, nontender. NEUROLOGIC: She is demented, but without any obvious lateralizing sign. All her cranial nerves are intact except that she is very deaf on the right side. She is status post acoustic neuroma resection. She moves extremities spontaneously, although she is unsteady on her feet. Her intake over the last 24 hours was 1140, no output was recorded. LABORATORY DATA: Her most recent lab work as of this morning showed a white cell count 4600, hemoglobin 12, hematocrit 37, MCV 92, and platelet count of 160,000. Her serum sodium was 139, potassium 3.6, chloride 103, bicarbonate 29, anion gap of 7, BUN 12, creatinine 0.5, estimated GFR was 117 mL per minute. Her glucose was 95, calcium was 8.9. Total bilirubin, AST, ALT, alkaline phosphatase were normal. Total protein 6.7, albumin 2.7. DISCHARGE MEDICATIONS: The patient was discharged to assisted living facility to continue on amlodipine besylate 10 mg once a day, apixaban 5 mg twice a day, bisacodyl suppository 10 mg rectally daily p.r.n. for constipation, Colace 100 mg daily, milk of magnesia 30 mL p.o. daily, multivitamin with mineral 1 tablet once a day, oxybutynin chloride 5 mg once a day, potassium chloride for Klor-Con 20 mEq once a day, psyllium husk for Metamucil 1 capsule daily and sertraline for Zoloft 100 mg once a day. FINAL DISCHARGE DIAGNOSES: 1. Recurrent falls. 2. Left knee pain with left knee effusion without any fracture. 3. T11 compression fracture. 4. Hypertension. 5. Gastroesophageal reflux disease. 6. Depression and dementia. 7. Acoustic neuroma resection. LM MC MD DR: SERAFIN/latrice JOB#: [id number] / [id number]
--- NOTE | 2020-01-31 14:49 | NUR ---
NURSING NOTE DISCHARGE PT DISCHARGED HOME WITH DAUGHTER WITH [facility], PT WAS ORIGINALLY SUPPOSED TO GO TO [facility] BUT WAS DECLINED. PT GIVEN WRITTEN AND VERBAL DISCHARGE INSTRUCTIONS. NO COMPLICATIONS. YUN GALICIA.
== END 2020-01-31 15:07 | disposition home or self-care (01) | DRG 565 ==
LOC: 1 SOUTH 14:16 → OBSVTOIN 01-30 18:53
PROVIDERS: ADMIT Internal Medicine; ATTEND Internal Medicine
DX: M25.462 Effusion, left knee (principal); S22.089A Unspecified fracture of T11-T12 vertebra, initial encounter for closed fracture; G11.9 Hereditary ataxia, unspecified; F03.90 Unspecified dementia, unspecified severity, without behavioral disturbance, psychotic disturbance, mood disturbance, and anxiety; F32.9 Major depressive disorder, single episode, unspecified; H90.41 Sensorineural hearing loss, unilateral, right ear, with unrestricted hearing on the contralateral side; I10 Essential (primary) hypertension; K21.9 Gastro-esophageal reflux disease without esophagitis; R29.6 Repeated falls; Z96.653 Presence of artificial knee joint, bilateral; Y93.89 Activity, other specified; Y92.89 Other specified places as the place of occurrence of the external cause; Y99.8 Other external cause status; Z98.41 Cataract extraction status, right eye; Z98.42 Cataract extraction status, left eye; Z88.5 Allergy status to narcotic agent; Z88.0 Allergy status to penicillin; Z03.818 Encounter for observation for suspected exposure to other biological agents ruled out
CPT/HCPCS: 36415; 73700; 78306; 80048; 80053; 84550; 85027; A9503; G0378; G0379; 97116; 97530

== ENCOUNTER → 2020-02-22 | Outpatient (CLI) | payer MEDICARE, BC ==
[2020-01-31 12:07] VITALS: BP 150/70
[~2020-02-22] MED LIST: AMLO10TA4 PO; APIX5TAB3 PO; BISA10SU4 RC; DOCU-109 PO; MAGN400O7 PO; MULT-121 PO; OXYB5TAB10 PO; POTA20PA30 PO; PSYL0.5215 PO; SERT100T PO
--- NOTE | 2020-02-22 15:38 | RAD ---
PROCEDURE: HIP LEFT 2V WITH PELVIS STUDY DATE: 02/22/2020 CLINICAL INDICATION / HISTORY: Left leg pain. TECHNIQUE:AP pelvis and AP and frog-leg lateral views of the left hip were obtained COMPARISON: Whole-body bone scan of 01/29/2020 FINDINGS: Intact pelvic ring. Mild generalized mineralization. No acute fracture or dislocation is apparent. Left hip shows 3 cannulated screws through the left femoral neck, reducing a subcapital fracture that shows faint sclerosis but no visible fracture line. There is joint space narrowing in the bilateral hips medially. The soft tissues are unremarkable.. IMPRESSION: 1. Healing left hip fracture with cannulated screws in place 2. Bilateral hip degenerative changes. No acute osseous abnormality shown. Electronically signed by: Jordon Rojas MD (02/22/2020 3:35 PM) [id number]
== END | disposition home or self-care (01) ==
LOC: RAD 14:59
PROVIDERS: ATTEND Physician Assistant
DX: S72.012A Unspecified intracapsular fracture of left femur, initial encounter for closed fracture (principal); M16.0 Bilateral primary osteoarthritis of hip; X58.XXXA Exposure to other specified factors, initial encounter; Y93.89 Activity, other specified; Y92.89 Other specified places as the place of occurrence of the external cause; Y99.8 Other external cause status
CPT/HCPCS: 73502

== ENCOUNTER 2020-04-19 12:31 | Emergency (ER) | payer MEDICARE, BC ==
[~2020-04-19] VITALS: Ht 167.6 cm; Wt 67.0 kg
[2020-04-19 12:32] VITALS: BP 150/70
--- NOTE | 2020-04-19 12:58 | PHYS DOC ---
Past History Past Medical History: Dementia, Depression, GERD, Hypertension Past Surgical History: Appendectomy, Hip Replacement, Tonsillectomy, Other Additional Past Surgical Histo: BILATERAL KNEES,HEMORRHOIDS Alcohol Use: Rarely Drug Use: None General Adult EDM: Chief Complaint: WEAKNESS/GENERALIZED HPI: HPI: Patient is an 84-year-old female who presents to the emergency department for evaluation. There is questionable altered mental status , per longterm staff. However the patient's daughter states that she seems baseline to her, she was contacted by nursing staff in the emergency department, by phone. The patient reportedly fed herself breakfast, and dressed herself this morning and was pushing herself around the wheelchair in the longterm, per EMS report. The patient has no complaints. She denies any headache, vision changes, numbness or focal weakness. She is able to follow some basic commands but does exhibit signs of dementia, something she has a history of. She does take Eliquis. She is noted to have a mild right-sided facial weakness but has had surgery for an acoustic neuroma in the past, per the patient's daughter. Review of Systems: Review of Systems: Constitutional: Denies fever or chills Eyes: Denies change in visual acuity HENT: Denies nasal congestion or sore throat Respiratory: Denies cough or shortness of breath Cardiovascular: Denies chest pain or edema GI: Denies abdominal pain, nausea, vomiting, bloody stools or diarrhea : Denies dysuria Musculoskeletal: Denies back pain or joint pain Integument: Denies rash Neurologic: Denies headache, focal weakness or sensory changes Endocrine: Denies polyuria or polydipsia Lymphatic: Denies swollen glands Psychiatric: Denies depression or anxiety Heart Score: Risk Factors: Risk Factors: DM, Current or recent (<one month) smoker, HTN, HLP, family history of CAD, obesity. Risk Scores: Score 0 - 3: 2.5% MACE over next 6 weeks - Discharge Home Score 4 - 6: 20.3% MACE over next 6 weeks - Admit for Clinical Observation Score 7 - 10: 72.7% MACE over next 6 weeks - Early Invasive Strategies Allergies: Allergies: Allergies Coded Allergies Type Severity Reaction Last Updated Verified Penicillins Allergy Unknown 08/31/19 Yes Sulfa (Sulfonamide Antibiotics) Allergy Unknown 08/31/19 Yes Physical Exam: PE: PHYSICAL EXAM: CONSTITUTIONAL: Well developed, well nourished HEAD: normocephalic, atraumatic EENT: PERRL, EOMI. Conjunctivae normal color, sclerae non-icteric; moist mucous membranes. NECK: Supple, non-tender; no meningismus. LUNGS: Lungs CTA, breathing even and unlabored. Normal air movement. HEART: Regular rate and rhythm, no murmur CHEST: No deformity; non-tender ABDOMEN: The abdomen is soft, and non-tender, no masses or bruits. EXTREM: Normal ROM; no deformity, no calf tenderness. Normal pulses palpable in all extremities. There is no pedal edema. SKIN: No rash; no diaphoresis NEURO: Alert; normal speech, impaired cognition consistent with a history of dementia. The patient does have some mild right-sided facial weakness, consistent with a history of a prior acoustic neuroma removal, and is currently baseline per the patient's daughter, otherwise CN's grossly intact; strength grossly intact without focal deficit. BACK: No CVA TTP. Current Patient Data: Labs: Laboratory Tests Test 04/19/20 12:40 04/19/20 13:30 White Blood Count 5.4 x10^3/uL Red Blood Count 4.61 x10^6/uL Hemoglobin 14.1 g/dL Hematocrit 42.5 % Mean Corpuscular Volume 92 fL Mean Corpuscular Hemoglobin 31 pg Mean Corpuscular Hemoglobin Concent 33 g/dL Red Cell Distribution Width 15.8 % Platelet Count 122 x10^3/uL Neutrophils (%) (Auto) 69 % Lymphocytes (%) (Auto) 20 % Monocytes (%) (Auto) 10 % Eosinophils (%) (Auto) 1 % Basophils (%) (Auto) 1 % Neutrophils # (Auto) 3.7 x10^3uL Lymphocytes # (Auto) 1.1 x10^3/uL Monocytes # (Auto) 0.5 x10^3/uL Eosinophils # (Auto) 0.0 x10^3/uL Basophils # (Auto) 0.0 x10^3/uL Sodium Level 137 mmol/L Potassium Level 4.1 mmol/L Chloride Level 100 mmol/L Carbon Dioxide Level 29 mmol/L Anion Gap 8 Blood Urea Nitrogen 20 mg/dL Creatinine 0.9 mg/dL Estimated GFR (Cockcroft-Gault) 59.7 BUN/Creatinine Ratio 22 Glucose Level 96 mg/dL Calcium Level 9.4 mg/dL Magnesium Level 2.2 mg/dL Total Bilirubin 0.4 mg/dL Aspartate Amino Transf (AST/SGOT) 20 U/L Alanine Aminotransferase (ALT/SGPT) 19 U/L Alkaline Phosphatase 120 U/L Troponin I Quantitative < 0.017 ng/mL Total Protein 7.7 g/dL Albumin 3.8 g/dL Albumin/Globulin Ratio 1.0 Urine Collection Type U cath Urine Color Yellow Urine Clarity Clear Urine pH 6.5 Urine Specific [place] 1.020 Urine Protein Neg Urine Glucose (UA) Neg mg/dL Urine Ketones (Stick) Neg mg/dL Urine Blood Trace Urine Nitrite Neg Urine Bilirubin Neg Urine Urobilinogen Dipstick 0.2 mg/dL Urine Leukocyte Esterase Neg Urine RBC 6-10 /HPF Urine WBC 1-4 /HPF Urine Squamous Epithelial Cells Few /LPF Urine Amorphous Sediment Present /HPF Urine Bacteria 0 /HPF Vital Signs: Vital Signs Date Time Temp Pulse Resp B/P (MAP) Pulse Ox O2 Delivery O2 Flow Rate FiO2 04/19/20 12:32 98.8 77 16 150/70 (96) 93 Room Air EKG: EKG: [] Normal sinus rhythm at a rate of 80 bpm, left axis deviation, normal intervals with the exception of a right bundle branch block, there are no acute ischemic ST/T changes. Radiology/Procedures: Radiology/Procedures: PROCEDURE: PORTABLE CHEST 1V EXAM: CHEST 1 VIEW History: Altered mental status COMPARISON: None available. TECHNIQUE: Single portable radiograph of the chest FINDINGS: Mild cardiomegaly. Small left pleural effusion with left lung base airspace opacities likely atelectasis or infiltrate. Mild prominent bilateral interstitial lung markings. IMPRESSION: Left lung base airspace opacities likely atelectasis or infiltrate with small left pleural effusion. Mild congestive changes. [] PROCEDURE: CT HEAD WO CONTRAST Examination: CT HEAD WO CONTRAST History: Reason: AMS / Spl. Instructions: / History: Comparison/Correlation: 11/01/2018 CT head without contrast Findings: Axial images of the head were obtained without contrast. Advanced atrophy is present. Extensive changes of white matter noted. 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 No midline shift or mass effect. Right temporal craniotomy defects are evident. Impression: No acute intracranial process. No significant changes. Course & Med Decision Making: Course & Med Decision Making Pertinent Labs and Imaging studies reviewed. (See chart for details) [] Patient remains stable. I discussed test results, the need for close follow- up, and return precautions. Nafisa Disclaimer: Nafisa Disclaimer: This electronic medical record was generated, in whole or in part, using a voice recognition dictation system. Departure Departure: Impression: Primary Impression: Dementia Disposition: HOME/RESIDENCE PRIOR TO ADM Condition: STABLE Referrals: PAM WEBER MD (PCP) Patient Instructions: Altered Mental Status, Dementia Justification of Admission: Justification of Admission: Justification of Admission Dx: N/A PARUL SHIN MD Apr 19, 2020 12:58
[2020-04-19 13:03] LABS: BASO % 1 % (0-3); EOS % 1 % (0-3); HEMATOCRIT 42.5 % (36.0-47.0); HEMOGLOBIN 14.1 g/dL (12.0-15.5); LYMPH # 1.1 x10^3/uL (1.0-4.8); LYMPH % 20 % (24-48); MEAN CORPUSCULAR HEMOGLOBIN 31 pg (25-35); MEAN CORPUSCULAR HGB CONC 33 g/dL (31-37); MEAN CORPUSCULAR VOLUME 92 fL (79-100); MONO # 0.5 x10^3/uL (0.0-1.1); MONO % 10 % (0-9); NEUT # 3.7 x10^3uL (1.8-7.7); NEUT % 69 % (31-73); PLATELET COUNT 122 x10^3/uL (140-400); RED BLOOD COUNT 4.61 x10^6/uL (3.50-5.40); RED CELL DISTRIBUTION WIDTH 15.8 % (11.5-14.5); WHITE BLOOD COUNT 5.4 x10^3/uL (4.0-11.0)
[2020-04-19 13:06] LABS: CALCIUM 9.4 mg/dL (8.5-10.1); CREATININE 0.9 mg/dL (0.6-1.0); GFR 59.7; POTASSIUM 4.1 mmol/L (3.5-5.1)
[2020-04-19 13:12] LABS: ALBUMIN 3.8 g/dL (3.4-5.0); MAGNESIUM 2.2 mg/dL (1.8-2.4); TOTAL BILIRUBIN 0.4 mg/dL (0.2-1.0); TOTAL PROTEIN 7.7 g/dL (6.4-8.2)
--- NOTE | 2020-04-19 13:22 | RAD ---
Examination: CT HEAD WO CONTRAST History: Reason: AMS / Spl. Instructions: / History: Comparison/Correlation: 11/01/2018 CT head without contrast Findings: Axial images of the head were obtained without contrast. Advanced atrophy is present. Extensive changes of white matter noted. 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 No midline shift or mass effect. Right temporal craniotomy defects are evident. Impression: No acute intracranial process. No significant changes. Electronically signed by: Codey Rojo MD (04/19/2020 1:19 PM) [id number]
--- NOTE | 2020-04-19 13:26 | RAD ---
EXAM: CHEST 1 VIEW History: Altered mental status COMPARISON: None available. TECHNIQUE: Single portable radiograph of the chest FINDINGS: Mild cardiomegaly. Small left pleural effusion with left lung base airspace opacities likely atelectasis or infiltrate. Mild prominent bilateral interstitial lung markings. IMPRESSION: Left lung base airspace opacities likely atelectasis or infiltrate with small left pleural effusion. Mild congestive changes. Electronically signed by: John Hoskins MD (04/19/2020 1:22 PM) [id number]
[2020-04-19 14:11] LABS: BACTERIA,URINE 0 /HPF (0-FEW); BILIRUBIN,URINE NEG (NEG); CLARITY,URINE CLEAR; COLOR,URINE YELLOW; GLUCOSE,URINE NEG (NEG); NITRITE,URINE NEG (NEG); SQUAMOUS EPITHELIAL CELL,UR FEW /LPF; UROBILINOGEN,URINE 0.2 mg/dL (0.2 mg/dL)
[2020-04-19 14:12] LABS: AMORPHOUS SEDIMENT,UR PRESENT /HPF
--- NOTE | 2020-04-19 16:07 | EKG ---
[address] [address] Test Date: 2020-04-19 Test Time: 13:24:03 Pat Name: REGINALDO SPAIN Department: Room: Gender: F Customer Accounts Advisor: : [id number] Requested By: PARUL SHIN Order Number: [id number] Reading MD: Measurements Intervals [place] Rate: 80 P: 39 SD: 152 QRS: -47 QRSD: 78 T: 15 QT: 432 QTc: 502 Interpretive Statements SINUS RHYTHM ABNORMAL LEFT AXIS DEVIATION R-S TRANSITION ZONE IN V LEADS DISPLACED TO THE RIGHT LOW LIMB LEAD VOLTAGE LEFT ANTERIOR FASCICULAR BLOCK QRS(T) CONTOUR ABNORMALITY CONSIDER ANTEROSEPTAL MYOCARDIAL DAMAGE PROLONGED QT ABNORMAL ECG RI6.02 No previous ECG available for comparison
== END 2020-04-19 14:58 | disposition home or self-care (01) ==
LOC: ER 12:31
DX: F03.90 Unspecified dementia, unspecified severity, without behavioral disturbance, psychotic disturbance, mood disturbance, and anxiety (principal); F32.9 Major depressive disorder, single episode, unspecified; K21.9 Gastro-esophageal reflux disease without esophagitis; I10 Essential (primary) hypertension; Z88.0 Allergy status to penicillin; Z88.2 Allergy status to sulfonamides
CPT/HCPCS: 36415; 70450; 71045; 80053; 81001; 83735; 84484; 85025; 93005; 99285; P9612